=== PATIENT | female | born 1975 | race Two or more races ===

== ENCOUNTER 2018-12-11 14:17 | Outpatient (CLI) | payer OTHER | END 2018-12-11 14:29 | disposition home or self-care (01) | LOC: RAD 501 14:17 | DX: M25.572 Pain in left ankle and joints of left foot (principal) ==

== ENCOUNTER 2024-11-03 06:14 | Outpatient (CLI) | payer OTHER | END 2024-11-03 06:24 | disposition home or self-care (01) | LOC: LAB 06:14 | PROVIDERS: ATTEND Orthopaedic Surgery | DX: E55.9 Vitamin D deficiency, unspecified (principal); M85.9 Disorder of bone density and structure, unspecified; E56.1 Deficiency of vitamin K ==